=== PATIENT | female | born 1985 | race Caucasian/White ===

== ENCOUNTER 2017-10-19 06:48 | Inpatient (IN) | payer SELFPAY ==
[2017-10-19] MEDS ORDERED: MISOPROSTOL 200 MCG TAB PR ×2 (07:30→13:00)
[2017-10-19] MEDS ORDERED: OXYTOCIN 30 UNITS/LR 500 ML IV ×2 (07:30→13:00)
[2017-10-19] MEDS ORDERED: METHYLERGONOVINE 0.2 MG INJ IM ×2 (07:30→13:00)
[2017-10-19] MEDS ORDERED: CARBOPROST 250 MCG INJ IM ×2 (07:30→13:00)
[2017-10-19] MEDS: LACTATED RINGER'S 1,000 ML IV ×2 (07:48→12:39)
[2017-10-19 08:12] LABS: ADD MAN DIFF? NO
[2017-10-19 08:20] LABS: BASOPHILS % 0.5 % (0.0-2.0); EOSINOPHILS # 0.1 10^3/ul (0.0-0.5); EOSINOPHILS % 0.8 % (0.0-7.0); HEMATOCRIT 33.5 % (37.0-47.0); HEMOGLOBIN 10.8 g/dl (12.0-16.0); LYMPHOCYTES # 2.1 10^3/ul (0.8-2.9); LYMPHOCYTES % 26.2 % (15.0-51.0); MEAN CORPUSCULAR HEMOGLOBIN 27.1 pg (29.0-33.0); MEAN CORPUSCULAR HGB CONC 32.2 g/dl (32.0-37.0); MEAN PLATELET VOLUME 10.9 fl (7.4-10.4); MONOCYTE # 0.6 10^3/ul (0.3-0.9); MONOCYTES % 7.3 % (0.0-11.0); NEUTROPHIL # 5.2 10^3/ul (1.6-7.5); NEUTROPHILS % 64.7 % (39.0-77.0); PLATELET COUNT 315 10^3/UL (140-415); RED BLOOD COUNT 3.99 10^6/ul (4.20-5.40); RED CELL DISTRIBUTION WIDTH 14.6 % (11.5-14.5)
[2017-10-19 08:46] LABS: INR 0.89; PROTIME 12.1 Sec (11.9-14.9); PT RATIO 0.9
[2017-10-19 08:47] LABS: PARTIAL THROMBOPLASTIN TIME 27.7 Sec (25.0-35.0)
[2017-10-19] MEDS ORDERED: METOCLOPRAMIDE 10 MG INJ (08:54)
[2017-10-19] MEDS ORDERED: ONDANSETRON 4 MG INJ (08:54)
[2017-10-19] MEDS ORDERED: FAMOTIDINE 20 MG INJ (08:54)
[2017-10-19] MEDS ORDERED: morphine SULFATE/PF (10 MG/10 ML) INJ (08:56)
[2017-10-19] MEDS ORDERED: BUPIVACAINE 0.75%/DEXT (SPINAL) 2 ML INJ (08:58)
[2017-10-19] MEDS: METOCLOPRAMIDE 10 MG INJ IV (09:00)
[2017-10-19] MEDS: FAMOTIDINE 20 MG INJ IV (09:00)
[2017-10-19] MEDS: ONDANSETRON 4 MG INJ IV (09:00)
[2017-10-19] MEDS ORDERED: OXYTOCIN 10 UNIT INJ (09:02)
[2017-10-19 09:12] LABS: HEPATITIS B SURFACE ANTIGEN NEGATIVE (NEGATIVE)
[2017-10-19] MEDS ORDERED: IPRATROPIUM (NEB) 0.5 MG/2.5 ML AMP HHN (10:30)
[2017-10-19] MEDS ORDERED: MEPERIDINE 25 MG INJ IV (10:30)
[2017-10-19] MEDS ORDERED: hydrALAzine 20 MG INJ IV (10:30)
[2017-10-19] MEDS ORDERED: ONDANSETRON 4 MG INJ IV ×2 (10:30)
[2017-10-19] MEDS ORDERED: DIPHENHYDRAMINE 50 MG INJ IV (10:30)
[2017-10-19] MEDS ORDERED: ZOLPIDEM 5 MG TAB PO (10:30)
[2017-10-19] MEDS ORDERED: KETOROLAC 30 MG INJ IV (10:30)
[2017-10-19] MEDS ORDERED: HYDROmorphONE (0.2 MG/ML) 10ML SYG IV ×3 (10:30)
[2017-10-19] MEDS ORDERED: HYDROmorphONE 0.5 MG/0.5 ML SYG IV ×2 (10:30)
[2017-10-19] MEDS ORDERED: NALOXONE (0.4 MG/ML) INJ IV (10:30)
[2017-10-19] MEDS ORDERED: LABETALOL HCL 20MG INJ IV (10:30)
[2017-10-19] MEDS: OXYTOCIN 30 UNITS/LR 500 ML IV ×2 (10:41→14:53)
[2017-10-19] MEDS: CEFAZOLIN 2 GM/50 ML (PMX) 50 ML IV (11:46)
[2017-10-19] MEDS ORDERED: OXYCODONE/ACETAMINOPHEN (5/325) TAB PO (13:00)
[2017-10-19] MEDS ORDERED: LANOLIN 7 GM TUBE TOP (13:00)
[2017-10-19 18:53] LABS: RAPID PLASMA REAGIN NONREACTIVE (NR)
[2017-10-20] MEDS: KETOROLAC 30 MG INJ IV (00:35)
[2017-10-20] MEDS: LACTATED RINGER'S 1,000 ML IV ×3 (01:22→12:39)
[2017-10-20] MEDS: DIPHENHYDRAMINE 50 MG INJ IV (02:38)
[2017-10-20 08:59] LABS: ADD MAN DIFF? NO
[2017-10-20 09:07] LABS: BASOPHILS % 0.4 % (0.0-2.0); EOSINOPHILS % 0.3 % (0.0-7.0); HEMATOCRIT 24.1 % (37.0-47.0); HEMOGLOBIN 7.8 g/dl (12.0-16.0); LYMPHOCYTES # 1.6 10^3/ul (0.8-2.9); LYMPHOCYTES % 18.1 % (15.0-51.0); MEAN CORPUSCULAR HEMOGLOBIN 26.9 pg (29.0-33.0); MEAN CORPUSCULAR HGB CONC 32.4 g/dl (32.0-37.0); MEAN CORPUSCULAR VOLUME 83.1 fl (82.0-101.0); MEAN PLATELET VOLUME 10.4 fl (7.4-10.4); MONOCYTE # 0.7 10^3/ul (0.3-0.9); MONOCYTES % 8.1 % (0.0-11.0); NEUTROPHIL # 6.6 10^3/ul (1.6-7.5); NEUTROPHILS % 72.8 % (39.0-77.0); PLATELET COUNT 265 10^3/UL (140-415); RED CELL DISTRIBUTION WIDTH 14.9 % (11.5-14.5)
[2017-10-20] MEDS: OXYCODONE/ACETAMINOPHEN (5/325) TAB PO ×3 (10:55→22:08)
[2017-10-20] MEDS: IBUPROFEN 800 MG TAB PO ×2 (13:06→18:46)
[2017-10-21] MEDS: OXYCODONE/ACETAMINOPHEN (5/325) TAB PO ×3 (01:44→16:44)
[2017-10-21] MEDS: IBUPROFEN 800 MG TAB PO ×4 (05:38→17:52)
[2017-10-21] MEDS: DOCUSATE SODIUM 100 MG CAP PO (20:47)
[2017-10-21] MEDS: BISACODYL 10 MG SUPP PR (23:27)
[2017-10-22] MEDS: NA PHOSPHATE/BIPHOS 133 ML ENEMA PR (00:46)
[2017-10-22] MEDS: IBUPROFEN 800 MG TAB PO ×4 (01:22→11:31)
[2017-10-22] MEDS: OXYCODONE/ACETAMINOPHEN (5/325) TAB PO (02:56)
[2017-10-22] MEDS: DIPHTH/TET/ACEL PERTUSS (ADULT) 0.5 ML VIAL IM* (09:00)
[2017-10-22] MEDS: DOCUSATE SODIUM 100 MG CAP PO (09:39)
[2017-10-22] MEDS ORDERED: FENTAnyl 50 MCG/ML VIAL (22:25)
[2017-10-22] MEDS ORDERED: PHENYLephrine (100 MCG/ML) 5ML SYG (22:25)
== END 2017-10-22 13:55 | disposition home or self-care (01) | DRG 766 ==
LOC: L-D 06:48 → PP1 13:24
PROVIDERS: Obstetrics & Gynecology
PROC: 10D00Z1 Extraction of Products of Conception, Low, Open Approach (ICD-10-PCS; principal; 2017-10-19 09:00)
DX: O30.043 Twin pregnancy, dichorionic/diamniotic, third trimester (principal); Z37.2 Twins, both liveborn; O35.8XX2 Maternal care for other (suspected) fetal abnormality and damage, fetus 2; Z3A.37 37 weeks gestation of pregnancy
CPT/HCPCS: 85025; 85610; 85730; 86592; 86850; 86900; 86901; 87340; 88307; 99464